=== PATIENT | female | born 1995 | race American Indian/Alaskan Native ===

== ENCOUNTER 2016-10-28 15:57 | Emergency (ER) | payer SELFPAY ==
--- NOTE | 2016-10-28 18:50 | Emergency Department Report ---
Chief Complaint: Abdominal Pain Stated Complaint: LUMPS ON PELVIC AREA/BLISTERS ON VAGINAL AREA Time Seen by Provider: 10/28/16 18:35 - HPI History of Present Illness: pt is a 21-year-old female who presents to ED complaining of irritation in the vaginal area 2-3 days. Patient states blisters looking like lesion on her vaginal area. Patient also had remained light vaginal bleeding 1 day. Patient describes pain with urination and burning with urination well as when she wipes. She denies fevers/chills/nausea/vomiting/abdominal pain/headaches/dizziness or any other problems. - ROS Review of Systems: As noted in HPI - Exam Vital Signs: Vital Signs 10/28/16 16:42 Temperature 98.3 F Pulse Rate 80 Respiratory 16 Rate Blood Pressure 148/98 O2 Sat by Pulse 100 Oximetry Physical Exam: GENERAL: Alert and oriented x3, no apparent distress, Normal Gait, atraumatic. NECK: Supple. Non edematous, No carotid bruits. No lymphadenopathy or thyromegaly. LUNGS: Symetrical with respiration, No wheezing, no rales or crackles, CTAB. HEART: S1, S2 present, regular rate and rhythm without murmur, no rubs, no gallops. ABDOMEN: No organomegaly was noted,Positive bowel sounds, soft, and non- distended. . Nontender to palpation on all Quadrants, NO CVA tenderness. MSE screening note: Focused history and physical exam performed. Due to findings the following was ordered: ED Medical Decision Making - Medical Decision Making Labs ordered. Urinalysis Ultrasound ordered. Patient alert and oriented 3 vital signs normal patient can seen over at [facility]. ED Disposition for MSE Condition: Stable Instructions: Abdominal Pain (ED)
[2016-10-28 19:30] LABS: Bilirubin,Urine NEG (Negative); Blood,Urine NEG (Negative); Ketones,Urine TR mg/dL (Negative); Leukocyte Esterase,Urine MOD (Negative); Mucus,Urine 3+ /HPF; Nitrite,Urine NEG (Negative)
[2016-10-28 20:41] LABS: Basophils % (Auto) 0.5 % (0.0-1.8); Eosinophils % (Auto) 1.5 % (0.0-4.3); Hematocrit 34.2 % (30.3-42.9); Hemoglobin 10.9 gm/dl (10.1-14.3); Mean Corpuscular HGB Conc 32 % (30-34); Mean Corpuscular Hemoglobin 26 pg (28-32); Mean Corpuscular Volume 82 fl (79-97); Platelet Count 285 K/mm3 (140-440); Red Blood Count 4.17 M/mm3 (3.65-5.03); Red Cell Distribution Width 14.8 % (13.2-15.2); White Blood Count 6.3 K/mm3 (4.5-11.0)
--- NOTE | 2016-10-28 22:14 | Ultrasound Report ---
FINAL REPORT PROCEDURE: US TRANSVAGINAL TECHNIQUE: Real-time transvaginal sonography in multiple planes of the pelvis was performed with image documentation. This examination was performed without Doppler. Vascular abnormalities, including ovarian torsion, will not be detectable without Doppler evaluation. CPT 00512 HISTORY: vag bleed COMPARISON: No prior studies are available for comparison. FINDINGS: UTERUS Size: 7.5 cm. Endometrial thickness: mm. Orientation: anteverted. Cervix: Normal. Fibroids/masses: None. RIGHT Ovary: 2.6 x 1.8 cm. Appearance: Normal flow. 1.3 centimeter cystic area right ovary. Minimal peripheral flow LEFT Ovary: 3.8 x 2.9 cm. Appearance: Normal flow. 2.8 x 2.3 centimeter heterogeneous mildly complex ovoid mass of diminished echogenicity with 5 millimeter areas of higher echogenicity.. This mass is of indeterminate etiology. Minimal peripheral marginal vascularity. Ectopic is the diagnosis of exclusion. Correlation with beta HCG analysis advised. Further characterization with cross-sectional imaging may be of use to exclude dermoid type masses. Pelvic fluid: None. Other: None. IMPRESSION: Solid complex mass in the left adnexa of indeterminate etiology. Cystic change right ovary No free fluid Followup is advised
--- NOTE | 2016-10-28 22:16 | Ultrasound Report ---
FINAL REPORT PROCEDURE: US PELVIC COMPLETE TECHNIQUE: Real-time transabdominal sonography in multiple planes of pelvis was performed with image documentation. This examination was performed without Doppler. Vascular abnormalities, including ovarian torsion, will not be detectable without Doppler evaluation. CPT 76706 HISTORY: vag bleed COMPARISON: Transvaginal ultrasound today FINDINGS: UTERUS Size: 7.5 cm. Endometrial thickness: 5 mm. Orientation: anteverted. Cervix: Normal. Fibroids/masses: None. RIGHT Ovary: 2.6 x 1.8 cm. Appearance: Normal flow. 1.3 centimeter cyst right ovary. LEFT Ovary: 3.8 x 2.9 cm. Appearance: Normal flow. 2.8 centimeter complex solid mass left adnexa of indeterminate etiology. This may warrant further workup. Pelvic fluid: None. Other: None. IMPRESSION: Cystic change right ovary Indeterminate complex solid mass left ovary. Followup and further workup advised as warranted
--- NOTE | 2016-10-28 23:24 | Emergency Department Report ---
ED Female HPI - General Chief complaint: Abdominal Pain Stated complaint: LUMPS ON PELVIC AREA/BLISTERS ON VAGINAL AREA Time Seen by Provider: 10/28/16 23:21 Source: patient, family Mode of arrival: Ambulatory Limitations: No Limitations - History of Present Illness Initial comments: Patient here with family. She reports that she has blisters and her vaginal area 2-3 days and they are very painful. She is also complaining the hemorrhoids off and on 6 months. She says she had some rectal bleeding with bowel movement but none recently. She is complaining not in her groin area. And pelvic area for a couple days. She does report she has some urinary burning. Denies any vaginal discharge. She denies any nausea vomiting or diarrhea. Denies any abdominal pain at present. She says she had vaginal bleeding that she is unable. Painful rectal area and pelvic area 10out of 10. She is also having pain to her vaginal area on the outside at 10 out of 10. She denies any fever or chills. Denies any back pain. MD Complaint: dysuria, other (blisters to vaginal area. Rectal pain.) Onset/Timin -: days(s), month(s) (hemorrhoids. 6 months) Location: labia Radiation: non-radiating Severity: severe Severity scale (0 -10): 10 Consistency: constant Improves with: none Worsens with: urination, movement Are you Now?: No Associated Symptoms: vaginal bleeding, dysuria, rash. denies: vaginal discharge , abdominal pain, nausea/vomiting, fever/chills, headaches, loss of appetite, seizure, shortness of breath, syncope, weakness - Related Data Sexually active: Yes Previous Rx's Medication Instructions Recorded Last Taken Type Cephalexin [Keflex] 500 mg PO Q8HR #42 cap 10/12/15 Unknown Rx Phenazopyridine [Pyridium] 100 mg PO TID #6 tab 10/12/15 Unknown Rx Metaxalone [Skelaxin] 800 mg PO TID PRN #15 tablet 08/17/16 Unknown Rx Hydrocortisone [Anucort-HC SUPPOS] 25 mg RC BID #10 supp.rect 10/28/16 Unknown Rx Ibuprofen [Motrin 600 MG tab] 600 mg PO Q8H PRN #15 tablet 10/28/16 Unknown Rx Nitrofurantoin [place]/M-Cryst 100 mg PO Q12HR #14 capsule 10/28/16 Unknown Rx [Macrobid CAP] Valacyclovir HCl [Valtrex] 1,000 mg PO BID #14 tab 10/28/16 Unknown Rx Allergies Allergy/AdvReac Type Severity Reaction Status Date / Time No Known Allergies Allergy Verified 10/28/16 16:51 ED Review of Systems ROS: Stated complaint: LUMPS ON PELVIC AREA/BLISTERS ON VAGINAL AREA Other details as noted in HPI Comment: All other systems reviewed and negative Constitutional: no symptoms reported ENT: denies: ear pain, throat pain, epistaxis, congestion Respiratory: no symptoms reported Cardiovascular: denies: chest pain, palpitations, edema, syncope Genitourinary: dysuria, other ([place] vaginal area. Complaining of hemorrhoids. Rectal pain). denies: urgency, frequency, hematuria, discharge, abnormal menses, dyspareunia Skin: rash Neurological: denies: headache, weakness, numbness, paresthesias, confusion ED Past Medical Hx - Past Medical History Previous Medical History?: Yes Additional medical history: HPV - Surgical History Past Surgical History?: No - Family History Family history: no significant - Social History Smoking Status: Never Smoker Substance Use Type: None - Medications Home Medications: Home Medications Medication Instructions Recorded Confirmed Last Taken Type Cephalexin [Keflex] 500 mg PO Q8HR #42 cap 10/12/15 Unknown Rx Phenazopyridine [Pyridium] 100 mg PO TID #6 tab 10/12/15 Unknown Rx Metaxalone [Skelaxin] 800 mg PO TID PRN #15 tablet 08/17/16 Unknown Rx Hydrocortisone [Anucort-HC SUPPOS] 25 mg RC BID #10 supp.rect 10/28/16 Unknown Rx Ibuprofen [Motrin 600 MG tab] 600 mg PO Q8H PRN #15 tablet 10/28/16 Unknown Rx Nitrofurantoin [place]/M-Cryst 100 mg PO Q12HR #14 capsule 10/28/16 Unknown Rx [Macrobid CAP] Valacyclovir HCl [Valtrex] 1,000 mg PO BID #14 tab 10/28/16 Unknown Rx ED Physical Exam - General Limitations: No Limitations General appearance: alert, in no apparent distress - Head Head exam: Present: atraumatic, normocephalic, normal inspection - Eye Eye exam: Present: normal appearance, PERRL, EOMI Pupils: Present: normal accommodation - ENT ENT exam: Present: normal exam, normal orophraynx, mucous membranes moist, TM's normal bilaterally, normal external ear exam - Neck Neck exam: Present: normal inspection, full ROM. Absent: tenderness, meningismus, lymphadenopathy - Respiratory Respiratory exam: Present: normal lung sounds bilaterally. Absent: respiratory distress - Cardiovascular Cardiovascular Exam: Present: regular rate, normal rhythm, normal heart sounds - GI/Abdominal GI/Abdominal exam: Present: soft, normal bowel sounds. Absent: distended, tenderness, guarding, rebound, rigid - Rectal Rectal exam: Present: hemorrhoids, tenderness. Absent: normal rectal tone, decreased rectal tone, heme (-) stool, black stool, bloody stool, fecal impaction, mass - External exam: Present: erythema, lesions (lesions noted to the vaginal area herpetic in appearance. Area is tender to palpate.), other (positive inguinal lymphadenopathy ). Absent: swelling, lacerations, ecchymosis, bleeding Speculum exam: Present: normal speculum exam. Absent: erythema, vaginal discharge, cervical discharge, vaginal bleeding, foreign body, tissue, laceration Bi-manual exam: Present: normal bi-manual exam. Absent: cervical motion tendernes, adnexal tenderness, adnexal mass - Extremities Exam Extremities exam: Present: normal inspection, full ROM, normal capillary refill , calf tenderness. Absent: tenderness, pedal edema, joint swelling - Back Exam Back exam: Present: normal inspection, full ROM. Absent: tenderness, CVA tenderness (R), CVA tenderness (L), muscle spasm, paraspinal tenderness, vertebral tenderness - Neurological Exam Neurological exam: Present: alert, altered, normal gait, motor sensory deficit. Absent: reflexes normal - Psychiatric Psychiatric exam: Present: normal affect, normal mood - Skin Skin exam: Present: warm, dry, intact, normal color ED Course Vital Signs 10/28/16 16:42 Temperature 98.3 F Pulse Rate 80 Respiratory 16 Rate Blood Pressure 148/98 O2 Sat by Pulse 100 Oximetry - Reevaluation(s) Reevaluation #1: 10/28/16 23:49 stable during ED course ED Medical Decision Making - Lab Data Result diagrams: 10/28/16 20:15 Lab Results 10/28/16 10/28/16 10/28/16 Range/Units 17:40 20:15 20:15 WBC 6.3 (4.5-11.0) K/mm3 RBC 4.17 (3.65-5.03) M/mm3 Hgb 10.9 (10.1-14.3) gm/dl Hct 34.2 (30.3-42.9) % MCV 82 (79-97) fl MCH 26 L (28-32) pg MCHC 32 (30-34) % RDW 14.8 (13.2-15.2) % Plt Count 285 (140-440) K/mm3 Lymph % (Auto) 38.4 H (13.4-35.0) % [place] % (Auto) 11.2 H (0.0-7.3) % Eos % (Auto) 1.5 (0.0-4.3) % Baso % (Auto) 0.5 (0.0-1.8) % Lymph # 2.4 (1.2-5.4) K/mm3 [place] # 0.7 (0.0-0.8) K/mm3 Eos # 0.1 (0.0-0.4) K/mm3 Baso # 0.0 (0.0-0.1) K/mm3 Seg Neutrophils % 48.4 (40.0-70.0) % Seg Neutrophils # 3.0 (1.8-7.7) K/mm3 HCG, Quant (0-4) mIU/mL Urine Color Yellow (Yellow) Urine Turbidity Slightly-cloudy (Clear) Urine pH 6.0 (5.0-7.0) Ur Specific [place] 1.025 (1.003-1.030) Urine Protein 30 mg/dl (Negative) mg/dL Urine Glucose (UA) Neg (Negative) mg/dL Urine Ketones Tr (Negative) mg/dL Urine Blood Neg (Negative) Urine Nitrite Neg (Negative) Urine Bilirubin Neg (Negative) Urine Urobilinogen 2.0 (<2.0) mg/dL Ur Leukocyte Esterase Mod (Negative) Urine WBC (Auto) 135.0 H (0.0-6.0) /HPF Urine RBC (Auto) 39.0 (0.0-6.0) /HPF U Epithel Cells (Auto) 9.0 (0-13.0) /HPF Urine Mucus 3+ /HPF Urine HCG, Qual Negative (Negative) Blood Type O NEGATIVE Antibody Screen Negative 10/28/16 Range/Units 20:26 WBC (4.5-11.0) K/mm3 RBC (3.65-5.03) M/mm3 Hgb (10.1-14.3) gm/dl Hct (30.3-42.9) % MCV (79-97) fl MCH (28-32) pg MCHC (30-34) % RDW (13.2-15.2) % Plt Count (140-440) K/mm3 Lymph % (Auto) (13.4-35.0) % [place] % (Auto) (0.0-7.3) % Eos % (Auto) (0.0-4.3) % Baso % (Auto) (0.0-1.8) % Lymph # (1.2-5.4) K/mm3 [place] # (0.0-0.8) K/mm3 Eos # (0.0-0.4) K/mm3 Baso # (0.0-0.1) K/mm3 Seg Neutrophils % (40.0-70.0) % Seg Neutrophils # (1.8-7.7) K/mm3 HCG, Quant < 2 (0-4) mIU/mL Urine Color (Yellow) Urine Turbidity (Clear) Urine pH (5.0-7.0) Ur Specific [place] (1.003-1.030) Urine Protein (Negative) mg/dL Urine Glucose (UA) (Negative) mg/dL Urine Ketones (Negative) mg/dL Urine Blood (Negative) Urine Nitrite (Negative) Urine Bilirubin (Negative) Urine Urobilinogen (<2.0) mg/dL Ur Leukocyte Esterase (Negative) Urine WBC (Auto) (0.0-6.0) /HPF Urine RBC (Auto) (0.0-6.0) /HPF U Epithel Cells (Auto) (0-13.0) /HPF Urine Mucus /HPF Urine HCG, Qual (Negative) Blood Type Antibody Screen - Radiology Data Radiology results: report reviewed Pelvic ultrasound reveals cystic changes to right ovary. Indeterminate complex solid mass left ovary. Follow-up and further workup advised is warranted. Left ovary with normal flow ,right ovary with normal flow. - Medical Decision Making ED course: I discussed with patient her results from ultrasound and I told her that she will need to follow up with [facility] in 2-3 days for further evaluation and treatment of complex mass her left ovary and cystic mass to the right ovary. I also instructed her that she is not and that her urine shows that she has urinary tract infection and based on my physical examination she has herpes genitalia and rectal hemorrhoid. She was understanding of need to follow-up. I Discussed treatment plan with patient to include follow-up and medication and she voices understanding. Patient discharged home with prescription for Macrobid and valacyclovir, Anucort and ibuprofen. Critical care attestation.: If time is entered above; I have spent that time in minutes in the direct care of this critically ill patient, excluding procedure time. ED Disposition Clinical Impression: Acute cystitis without hematuria, Herpes simplex of female genitalia, Internal hemorrhoid, Mass of left ovary Ovarian cyst Qualifiers: Laterality: right Qualified Code(s): N83.201 - Unspecified ovarian cyst, right side Disposition: DISCHARGED TO HOME OR SELFCARE Is pt being admited?: No Does the pt Need Aspirin: No Condition: Stable Instructions: Hemorrhoids (ED), Urinary Tract Infection in Women (ED), Genital Herpes Simplex (ED), Ovarian Cyst (ED) Additional Instructions: Ultrasound report revealed that you have a 2.8 cm complex solid mass to left ovary and he will need to follow up with [facility] for further evaluation and treatment. you will probably need a biopsy of left ovarian mass. It is very important that we call [facility] in the morning to schedule an appointment take medication as prescribed Please follow up with [facility] see discharge instruction paperwork for phone number and address. He can also follow-up with outside Medical Center. Refer to discharge instruction paperwork for address and phone number. Prescriptions: Hydrocortisone [Anucort-HC SUPPOS] 25 mg RC BID #10 supp.rect Nitrofurantoin [place]/M-Cryst [Macrobid CAP] 100 mg PO Q12HR #14 capsule Ibuprofen [Motrin 600 MG tab] 600 mg PO Q8H PRN #15 tablet PRN Reason: Pain Valacyclovir HCl [Valtrex] 1,000 mg PO BID #14 tab Referrals: [facility] [Outside] - 2-3 Days [facility] [Provider Group] - 10/30/16 [facility] [Primary Care Provider] - 2-3 Days Forms: Accompanied Note, Work/School Release Form(ED)
[2016-10-29 01:30] VITALS: BP 139/89
== END 2016-10-29 01:30 | disposition home or self-care (01) ==
LOC: ED 15:57
DX: N30.00 Acute cystitis without hematuria (principal); A60.09 Herpesviral infection of other urogenital tract; N83.201 Unspecified ovarian cyst, right side; K64.8 Other hemorrhoids
CPT/HCPCS: 36415; 76830; 76856; 81001; 81025; 84702; 85025; 86850; 86900; 86901

== ENCOUNTER 2017-03-09 18:00 | Emergency (ER) | payer SELFPAY ==
[2017-03-09 19:05] LABS: Basophils % (Auto) 0.6 % (0.0-1.8); Eosinophils % (Auto) 0.9 % (0.0-4.3); Hematocrit 32.8 % (30.3-42.9); Hemoglobin 10.6 gm/dl (10.1-14.3); Mean Corpuscular HGB Conc 33 % (30-34); Mean Corpuscular Hemoglobin 26 pg (28-32); Mean Corpuscular Volume 80 fl (79-97); Platelet Count 355 K/mm3 (140-440); Red Blood Count 4.08 M/mm3 (3.65-5.03); Red Cell Distribution Width 14.5 % (13.2-15.2); White Blood Count 9.2 K/mm3 (4.5-11.0)
[2017-03-09 19:20] LABS: Alanine Aminotransferase 9 units/L (7-56); Albumin/Globulin Ratio 0.9 %; Alkaline Phosphatase 71 units/L (35-129); Anion Gap 21 mmol/L; Blood Urea Nitrogen 10 mg/dL (7-17); Calcium 9.7 mg/dL (8.4-10.2); Carbon Dioxide 23 mmol/L (22-30); Chloride 95.8 mmol/L (98-107); Glucose 82 mg/dL (65-100); Lipase 22 units/L (13-60); Potassium 4.1 mmol/L (3.6-5.0); Sodium 136 mmol/L (137-145); Total Protein 8.6 g/dL (6.3-8.2)
--- NOTE | 2017-03-10 00:06 | Emergency Department Report ---
HPI - General Chief Complaint: Vaginal Bleeding Time Seen by Provider: 03/09/17 23:33 - HPI HPI: This is a 22-year-old Afro-[place] female presents to the emergency department , driving himself in to be seen today, with complaint of a three-day history of some type of cyst or abscess to the right side of the vagina. She says that she noticed it 3 days ago but the pain started yesterday. It is getting to the point where it hurts with any movement or walking. She tried some Motrin for her symptoms without any relief. She does not have a primary care doctor or OB/ [facility]. No recent travel or sick contacts at home. She has a past medical history of HPV and a right ovarian cyst. ED Past Medical Hx - Past Medical History Previous Medical History?: Yes Additional medical history: HPV, rigth ovarian cyst - Surgical History Past Surgical History?: No - Social History Smoking Status: Never Smoker Substance Use Type: Non Opiate Pain - Medications Home Medications: Home Medications Medication Instructions Recorded Confirmed Last Taken Type Cephalexin [Keflex] 500 mg PO Q8HR #42 cap 10/12/15 Unknown Rx Phenazopyridine [Pyridium] 100 mg PO TID #6 tab 10/12/15 Unknown Rx Metaxalone [Skelaxin] 800 mg PO TID PRN #15 tablet 08/17/16 Unknown Rx Hydrocortisone [Anucort-HC SUPPOS] 25 mg RC BID #10 supp.rect 10/28/16 Unknown Rx Ibuprofen [Motrin 600 MG tab] 600 mg PO Q8H PRN #15 tablet 10/28/16 Unknown Rx Nitrofurantoin [place]/M-Cryst 100 mg PO Q12HR #14 capsule 10/28/16 Unknown Rx [Macrobid CAP] Valacyclovir HCl [Valtrex] 1,000 mg PO BID #14 tab 10/28/16 Unknown Rx HYDROcodone/APAP 5-325 [[place] 1 each PO Q6HR PRN #10 tablet 03/10/17 Unknown Rx 5/325] Sulfamethoxazole/Trimethoprim 1 each PO BID #14 tablet 03/10/17 Unknown Rx [Bactrim DS TAB] ED Review of Systems ROS: Stated complaint: POSS CYST Other details as noted in HPI Comment: All other systems reviewed and negative Constitutional: denies: chills, fever Eyes: denies: eye pain, eye discharge, vision change ENT: denies: ear pain, throat pain Respiratory: denies: cough, shortness of breath, wheezing Cardiovascular: denies: chest pain, palpitations Gastrointestinal: denies: abdominal pain, nausea, diarrhea Genitourinary: denies: dysuria, discharge Musculoskeletal: denies: back pain, joint swelling, arthralgia Skin: denies: rash, lesions Neurological: denies: headache, weakness, paresthesias Physical Exam - Physical Exam Vital Signs: Vital Signs 03/09/17 03/09/17 18:19 23:59 Temperature 97.8 F Pulse Rate 102 H Respiratory 18 20 Rate Blood Pressure 161/109 Blood Pressure 161/109 [Right] O2 Sat by Pulse 99 99 Oximetry Physical Exam: GENERAL: The patient is well-developed well-nourished. HEENT: Normocephalic. Atraumatic. Extraocular motions are intact. Patient has moist mucous membranes. NECK: Supple. Trachea is midline. CHEST/LUNGS: Clear to auscultation. There is no respiratory distress noted. HEART/CARDIOVASCULAR: Regular. There is no tachycardia. There is no gallop rub or murmur. ABDOMEN: Abdomen is soft, nontender. Patient has normal bowel sounds. There is no abdominal distention. SKIN: There is a tender and fluctuant abscess just inside the right side of the vagina. There does not appear to be any surrounding erythema. There are no other vaginal or labial lesions seen. NEURO: The patient is awake, alert, and oriented. The patient is cooperative. The patient has no focal neurologic deficits. The patient has normal speech. MUSCULOSKELETAL: There is no tenderness or deformity. There is no limitation range of motion. There is no evidence of acute injury. ED Course Vital Signs 03/09/17 03/09/17 18:19 23:59 Temperature 97.8 F Pulse Rate 102 H Respiratory 18 20 Rate Blood Pressure 161/109 Blood Pressure 161/109 [Right] O2 Sat by Pulse 99 99 Oximetry - I & D Right Vagina Type of Procedure: Simple Site: right-sided Bartholin's Gland abscess Blade Size: 11 I & D Procedure: betadine prep Progress: The right side of the labia was cleaned with Betadine solution. The Bartholin' s gland cyst/abscess was locally anesthetized with 2 mL of 2% lidocaine. After the patient had some level of numbing, the 11 blade scalpel was used to make a 1 cm incision. There was about 5 mL of purulent malodorous discharge removed. A Word catheter was placed inside and blown up. No complications were seen from the procedure. There was a total blood loss of about 2 mL. ED Medical Decision Making - Lab Data Result diagrams: 03/09/17 18:46 03/09/17 18:46 - Medical Decision Making 22-year-old female presents emergency Department with a tender growth to the inside of the right vagina. It appears consistent with a Bartholin's gland cyst versus abscess. Patient had blood work that did not show any leukocytosis , electrolytes abnormalities, renal insufficiency or glucose abnormalities in the patient is not . She denies any vaginal bleeding, vaginal discharge but does have this swollen area within the vagina. The patient received local anesthesia via lidocaine. She then had a incision and drainage which expressed about 5 mL of purulent discharge. This appears most consistent with a Bartholin's gland abscess. A Word catheter was placed inside of the abscess and blown up to be secured. The patient was given oral pain medication and her first dose of antibiotics. We discussed wound care and she understands that the catheter needs to come out in about 2 days. She was given multiple referrals for [facility] but also understands that she can go to an urgent care or return to the emergency department to have a wound check and have the catheter removed. Vital signs stable including being afebrile. There is some mild hypertension but I think it is secondary to pain. - Differential Diagnosis abscess, cyst, cellulitis Critical Care Time: No Critical care attestation.: If time is entered above; I have spent that time in minutes in the direct care of this critically ill patient, excluding procedure time. ED Disposition Clinical Impression: Bartholin's gland abscess Hypertension Qualifiers: Hypertension type: essential hypertension Qualified Code(s): I10 - Essential ( primary) hypertension Disposition: DISCHARGED TO HOME OR SELFCARE Is pt being admited?: No Condition: Stable Instructions: Abscess (ED), Bartholin Cyst (ED), Incision and Drainage (ED), Hypertension (ED) Additional Instructions: Please clean the area with soap and water and then make sure he tries to remain dry. Follow-up with [facility] as soon as possible. The word catheter should come out in about 2 days. This can be done at the [facility] office or if you need to, he can return to the emergency department. Take the antibiotics as prescribed. You've been prescribed a medication that is sedating. Therefore this medication cannot be mixed with alcohol, or taken prior to driving, working, or being responsible for children. Prescriptions: HYDROcodone/APAP 5-325 [[place] 5/325] 1 each PO Q6HR PRN #10 tablet PRN Reason: Pain Sulfamethoxazole/Trimethoprim [Bactrim DS TAB] 1 each PO BID #14 tablet Referrals: PRIMARY CARE [Primary Care Provider] - 3-5 Days [facility] [Provider Group] - 3-5 Days [facility] [Provider Group] - 3-5 Days [facility] [Provider Group] - 3-5 Days Time of Disposition: 02:19
[2017-03-10 00:08] VITALS: BP 149/98
[2017-03-10] MEDS ORDERED: XYLOCAINE 2% INFILTRATI ONE (00:38)
[2017-03-10] MEDS ORDERED: NORCO 5/325 PO ONE (00:44)
[2017-03-10] MEDS ORDERED: BACTRIM DS PO ONE (01:53)
== END 2017-03-10 02:57 | disposition home or self-care (01) ==
LOC: ED 18:00
DX: N75.1 Abscess of Bartholin's gland (principal); I10 Essential (primary) hypertension
CPT/HCPCS: 36415; 80053; 83690; 84702; 85025; 99283

== ENCOUNTER 2017-03-12 20:55 | Emergency (ER) | payer SELFPAY ==
[2017-03-12 21:09] VITALS: BP 113/84
--- NOTE | 2017-03-12 21:46 | Emergency Department Report ---
ED Recheck HPI - General Chief Complaint: Medical Clearance Stated Complaint: CATHETER REMOVAL Time Seen by Provider: 03/12/17 21:11 Source: patient Mode of arrival: Ambulatory Limitations: No Limitations - History of Present Illness Initial Comments: This is a 22-year-old female well-nourished with nontoxic or ill in appearance that presents with a reevaluation of a heredia catheter has been placed 3 days for a bathrolin abscess by Dr. Fernandes. Patient stated Dr. Fernandes instrcuted patient to return in 2 days for Heredia cath removal. Patient stated area is still draining pus like appearance. Patient denies fever, chills, headache, CP, SOB, numbness, tingling, abd pain, numbness or tingling. Patient stated she feels pain to the I&D area. Patient stated has been taking Bactrim [place]. Patient denies any drug allergies. MD Complaint: wound re-check -: Gradual, days(s) (3) Initial Visit For: abscess Returns Today for: wound recheck Symptoms Since Prior Visit: improved Context: other (came in for removal of heredia cath) Associated Symptoms: none. denies: fever, chills, chest pain, shortness of breath, rash, malaise, nasuea, abdominal pain Treatments Prior to Arrival: other (Bactrim, Roxbury) - Related Data Previous Rx's Medication Instructions Recorded Last Taken Type Cephalexin [Keflex] 500 mg PO Q8HR #42 cap 10/12/15 Unknown Rx Phenazopyridine [Pyridium] 100 mg PO TID #6 tab 10/12/15 Unknown Rx Metaxalone [Skelaxin] 800 mg PO TID PRN #15 tablet 08/17/16 Unknown Rx Hydrocortisone [Anucort-HC SUPPOS] 25 mg RC BID #10 supp.rect 10/28/16 Unknown Rx Ibuprofen [Motrin 600 MG tab] 600 mg PO Q8H PRN #15 tablet 10/28/16 Unknown Rx Nitrofurantoin Tyrrell/M-Cryst 100 mg PO Q12HR #14 capsule 10/28/16 Unknown Rx [Macrobid CAP] Valacyclovir HCl [Valtrex] 1,000 mg PO BID #14 tab 10/28/16 Unknown Rx HYDROcodone/APAP 5-325 [[place] 1 each PO Q6HR PRN #10 tablet 03/10/17 Unknown Rx 5/325] Sulfamethoxazole/Trimethoprim 1 each PO BID #14 tablet 03/10/17 Unknown Rx [Bactrim DS TAB] Allergies Allergy/AdvReac Type Severity Reaction Status Date / Time No Known Allergies Allergy Verified 10/28/16 16:51 ED Review of Systems ROS: Stated complaint: CATHETER REMOVAL Other details as noted in HPI Constitutional: denies: chills, fever Eyes: denies: eye pain, eye discharge, vision change ENT: denies: ear pain, throat pain Respiratory: denies: cough, shortness of breath, wheezing Cardiovascular: denies: chest pain, palpitations Endocrine: no symptoms reported Gastrointestinal: denies: abdominal pain, nausea, diarrhea Genitourinary: denies: urgency, dysuria, discharge Musculoskeletal: denies: back pain, joint swelling, arthralgia Skin: denies: rash, lesions Neurological: denies: headache, weakness, paresthesias Psychiatric: denies: anxiety, depression Hematological/Lymphatic: denies: easy bleeding, easy bruising ED Past Medical Hx - Past Medical History Additional medical history: HPV, rigth ovarian cyst - Social History Smoking Status: Never Smoker Substance Use Type: None - Medications Home Medications: Home Medications Medication Instructions Recorded Confirmed Last Taken Type Cephalexin [Keflex] 500 mg PO Q8HR #42 cap 10/12/15 Unknown Rx Phenazopyridine [Pyridium] 100 mg PO TID #6 tab 10/12/15 Unknown Rx Metaxalone [Skelaxin] 800 mg PO TID PRN #15 tablet 08/17/16 Unknown Rx Hydrocortisone [Anucort-HC SUPPOS] 25 mg RC BID #10 supp.rect 10/28/16 Unknown Rx Ibuprofen [Motrin 600 MG tab] 600 mg PO Q8H PRN #15 tablet 10/28/16 Unknown Rx Nitrofurantoin Tyrrell/M-Cryst 100 mg PO Q12HR #14 capsule 10/28/16 Unknown Rx [Macrobid CAP] Valacyclovir HCl [Valtrex] 1,000 mg PO BID #14 tab 10/28/16 Unknown Rx HYDROcodone/APAP 5-325 [[place] 1 each PO Q6HR PRN #10 tablet 03/10/17 Unknown Rx 5/325] Sulfamethoxazole/Trimethoprim 1 each PO BID #14 tablet 03/10/17 Unknown Rx [Bactrim DS TAB] ED Physical Exam - General Limitations: No Limitations General appearance: alert, in no apparent distress - Head Head exam: Present: atraumatic, normocephalic, normal inspection - Eye Eye exam: Present: normal appearance, PERRL, EOMI. Absent: scleral icterus, conjunctival injection, nystagmus, periorbital swelling, periorbital tenderness Pupils: Present: normal accommodation - ENT ENT exam: Present: normal exam, normal orophraynx, mucous membranes moist, TM's normal bilaterally, normal external ear exam - Neck Neck exam: Present: normal inspection, full ROM. Absent: tenderness, meningismus, lymphadenopathy, thyromegaly - Respiratory Respiratory exam: Present: normal lung sounds bilaterally. Absent: respiratory distress, wheezes, rales, rhonchi, stridor - Cardiovascular Cardiovascular Exam: Present: regular rate, normal rhythm. Absent: systolic murmur, diastolic murmur, rubs, gallop - GI/Abdominal GI/Abdominal exam: Present: soft, normal bowel sounds. Absent: distended, tenderness, guarding, rebound, rigid, diminished bowel sounds - External exam: Present: normal external exam, other (heredia cath normal position with no signs of pus or drainage. No odor. no swelling. No erythema. Nontender. ). Absent: erythema, swelling, lesions, lacerations, ecchymosis, bleeding - Extremities Exam Extremities exam: Present: normal inspection, full ROM, normal capillary refill , calf tenderness. Absent: tenderness, pedal edema, joint swelling - Back Exam Back exam: Present: normal inspection, full ROM. Absent: tenderness, CVA tenderness (R), CVA tenderness (L), muscle spasm, paraspinal tenderness, vertebral tenderness, rash noted - Neurological Exam Neurological exam: Present: alert, oriented X3, CN II-XII intact, normal gait - Psychiatric Psychiatric exam: Present: normal affect, normal mood - Skin Skin exam: Present: warm, dry, intact, normal color. Absent: rash ED Course Vital Signs 03/12/17 21:03 Temperature 99.1 F Respiratory 20 Rate Blood Pressure 113/84 O2 Sat by Pulse 100 Oximetry ED Recheck MDM - Medical Decision Making Ed course: This is a 22-year-old female that presents with Heredia cath removal 1- A physical exam has been performed with lease out man present (Allen Larkin) with normal findings. 2- I instructed patient that the heredia cath has to stay in place for at least 4 weeks and follow-up with a [employer]. 3- I provided patient with [employer]PA[employer] TE[employer]ER and different clinics for a f/u 4- I instructed patient to continue taking Bactrim and Roxbury for pain 5- at the time of discharge the patient does not seem toxic or ill in appearance. No signs of distress noted. Patient agrees to discharge treatment plan. No further questions noted by the patient. Critical care attestation.: If time is entered above; I have spent that time in minutes in the direct care of this critically ill patient, excluding procedure time. ED Disposition Clinical Impression: Encounter for wound re-check Disposition: DC-01 TO HOME OR SELFCARE Is pt being admited?: No Does the pt Need Aspirin: No Condition: Stable Instructions: Acute Wound Care (ED) Additional Instructions: Heredia Cath has to be in placed for at least 4 weeks and must be monitored by a provider. Please follow-up with a provider as soon as possible. If symptoms of fever, chills, headache, stiff neck, shortness of breath, chest pain returned back to emergency department as soon as possible. Continue taking Bactrim and Roxbury as prescribed. Referrals: PRIMARY CAREMD [Primary Care Provider] - 3-5 Days [facility] [Provider Group] - 24 Hours [facility] [Outside] - 24 Hours [facility] [Outside] - 24 Hours SARAH SMITH JR, MD [Staff Physician] - 24 Hours Forms: Work/School Release Form(ED)
== END 2017-03-12 22:17 | disposition home or self-care (01) ==
LOC: ED 20:55
DX: Z48.817 Encounter for surgical aftercare following surgery on the skin and subcutaneous tissue (principal); N75.1 Abscess of Bartholin's gland; N83.201 Unspecified ovarian cyst, right side

== ENCOUNTER 2019-04-15 20:27 | Emergency (ER) | payer SELFPAY ==
--- NOTE | 2019-04-15 21:36 | Event Note ---
ED Screening Note ED Screening Note: Left ankle pain that began this morning around 5 AM states that she tripped and inverted her ankle ambulatory but with discomfort never injured before LNMP: april 07 PMHx ovarian cyst no allergies to meds This initial assessment/diagnostic orders/clinical plan/treatment(s) is/are subject to change based on patients health status, clinical progression and re- assessment by fellow clinical providers in the ED. Further treatment and workup at subsequent clinical providers discretion. Patient/guardian urged not to elope from the ED as their condition may be serious if not clinically assessed and managed. Initial orders include: xr of the left ankle
[2019-04-15 21:38] VITALS: BP 163/73
--- NOTE | 2019-04-15 22:17 | XRay Report ---
Left ankle 3 views INDICATION: Left ankle pain following injury IMPRESSION: No fracture or subluxation of the left ankle is identified. Signer Name: Sabas Khan MD Signed: 04/15/2019 10:12 PM Workstation Name: [id number]
--- NOTE | 2019-04-15 23:18 | Emergency Department Report ---
ED Lower Extremity HPI - General Chief Complaint: Extremity Injury, Lower Stated Complaint: ANKLE INJURY Time Seen by Provider: 04/15/19 21:34 Source: patient Mode of arrival: Ambulatory Limitations: No Limitations - History of Present Illness Initial Comments: She was leaving out of the back door of her friend's apartment and was she stepped down onto the step left ankle rolled and the inversion fashion, causing pain to the lateral aspect which is worse with ambulation. She is able to and ambulate with some discomfort. She noticed some swelling and a dull throbbing pain there which is continued to MD Complaint: ankle injury -: Gradual Injury: Ankle: Left Type of Injury: inversion Place: home Severity: mild Worsens With: weight bearing, movement, palpation Associated Symptoms: able to partially bear weight, ambulatory. denies: swelling, numbness, unable to bear weight - Related Data Previous Rx's Medication Instructions Recorded Last Taken Type Phenazopyridine [Pyridium] 100 mg PO TID #6 tab 10/12/15 Unknown Rx cephALEXin [Keflex] 500 mg PO Q8HR #42 cap 10/12/15 Unknown Rx Metaxalone [Skelaxin] 800 mg PO TID PRN #15 tablet 08/17/16 Unknown Rx Hydrocortisone [Anucort-HC SUPPOS] 25 mg RC BID #10 supp.rect 10/28/16 Unknown Rx Ibuprofen [Motrin 600 MG tab] 600 mg PO Q8H PRN #15 tablet 10/28/16 Unknown Rx Nitrofurantoin [place]kins/M-Cryst 100 mg PO Q12HR #14 capsule 10/28/16 Unknown Rx [Macrobid CAP] Valacyclovir HCl [Valtrex] 1,000 mg PO BID #14 tab 10/28/16 Unknown Rx HYDROcodone/APAP 5-325 [Freedom 1 each PO Q6HR PRN #10 tablet 03/10/17 Unknown Rx 5/325] Sulfamethoxazole/Trimethoprim 1 each PO BID #14 tablet 03/10/17 Unknown Rx [Bactrim DS TAB] Ketorolac [Toradol] 10 mg PO Q6H PRN #15 tablet 08/28/18 Unknown Rx traMADol [Ultram] 50 mg PO Q6HR PRN #20 tablet 08/28/18 Unknown Rx Ketorolac [Toradol] 10 mg PO Q6H PRN #15 tablet 04/15/19 Unknown Rx Allergies Allergy/AdvReac Type Severity Reaction Status Date / Time No Known Allergies Allergy Verified 10/28/16 16:51 ED Review of Systems ROS: Stated complaint: ANKLE INJURY Other details as noted in HPI Comment: All other systems reviewed and negative ED Past Medical Hx - Past Medical History Previous Medical History?: No Hx Hypertension: No Hx CVA: No Hx Heart Attack/AMI: No Hx Congestive Heart Failure: No Hx Diabetes: No Hx Deep Vein Thrombosis: No Hx Pulmonary Embolism: No Hx GERD: No Hx Liver Disease: No Hx Renal Disease: No Hx of Cancer: No Hx Sickle Cell Disease: No Hx Arthritis: No Hx Headaches / Migraines: No Hx Seizures: No Hx Kidney Stones: No Hx Psychiatric Treatment: No Hx Asthma: No Hx COPD: No Hx Tuberculosis: No Hx Dementia: No Hx HIV: No Additional medical history: HPV, rigth ovarian cyst - Surgical History Past Surgical History?: No Hx Coronary Stent: No Hx Open Heart Surgery: No Hx Pacemaker: No Hx Internal Defibrillator: No Hx Cholecystectomy: No Hx Appendectomy: No Hx Breast Surgery: No - Social History Smoking Status: Never Smoker Substance Use Type: None - Medications Home Medications: Home Medications Medication Instructions Recorded Confirmed Last Taken Type Phenazopyridine [Pyridium] 100 mg PO TID #6 tab 10/12/15 Unknown Rx cephALEXin [Keflex] 500 mg PO Q8HR #42 cap 10/12/15 Unknown Rx Metaxalone [Skelaxin] 800 mg PO TID PRN #15 tablet 08/17/16 Unknown Rx Hydrocortisone [Anucort-HC SUPPOS] 25 mg RC BID #10 supp.rect 10/28/16 Unknown Rx Ibuprofen [Motrin 600 MG tab] 600 mg PO Q8H PRN #15 tablet 10/28/16 Unknown Rx Nitrofurantoin [place]kins/M-Cryst 100 mg PO Q12HR #14 capsule 10/28/16 Unknown Rx [Macrobid CAP] Valacyclovir HCl [Valtrex] 1,000 mg PO BID #14 tab 10/28/16 Unknown Rx HYDROcodone/APAP 5-325 [Freedom 1 each PO Q6HR PRN #10 tablet 03/10/17 Unknown Rx 5/325] Sulfamethoxazole/Trimethoprim 1 each PO BID #14 tablet 03/10/17 Unknown Rx [Bactrim DS TAB] Ketorolac [Toradol] 10 mg PO Q6H PRN #15 tablet 08/28/18 Unknown Rx traMADol [Ultram] 50 mg PO Q6HR PRN #20 tablet 08/28/18 Unknown Rx Ketorolac [Toradol] 10 mg PO Q6H PRN #15 tablet 04/15/19 Unknown Rx ED Physical Exam - General Limitations: No Limitations General appearance: alert, in no apparent distress - Head Head exam: Present: atraumatic, normocephalic - Eye Eye exam: Present: normal appearance, PERRL, EOMI Pupils: Present: normal accommodation - ENT ENT exam: Present: normal exam, mucous membranes moist - Neck Neck exam: Present: normal inspection - Respiratory Respiratory exam: Present: normal lung sounds bilaterally. Absent: respiratory distress - Cardiovascular Cardiovascular Exam: Present: regular rate, normal rhythm. Absent: systolic murmur, diastolic murmur, rubs, gallop - GI/Abdominal GI/Abdominal exam: Present: soft, normal bowel sounds - Extremities Exam Extremities exam: Present: normal inspection, full ROM, tenderness, normal capillary refill, joint swelling. Absent: pedal edema - Back Exam Back exam: Present: normal inspection, full ROM. Absent: CVA tenderness (R), CVA tenderness (L), muscle spasm, vertebral tenderness - Neurological Exam Neurological exam: Present: alert, oriented X3, CN II-XII intact, normal gait. Absent: motor sensory deficit, reflexes normal - Psychiatric Psychiatric exam: Present: normal affect, normal mood. Absent: flat affect, manic - Skin Skin exam: Present: warm, dry, intact, normal color. Absent: rash, cyanosis, diaphoretic, erythema, petechiae, pallor, abrasion ED Course Vital Signs 04/15/19 21:34 Temperature 99.7 F H Pulse Rate 94 H Respiratory 18 Rate Blood Pressure 163/73 Blood Pressure 163/73 [Right] O2 Sat by Pulse 100 Oximetry Critical care attestation.: If time is entered above; I have spent that time in minutes in the direct care of this critically ill patient, excluding procedure time. ED Disposition Clinical Impression: Left ankle sprain Disposition: DC-01 TO HOME OR SELFCARE Is pt being admited?: No Does the pt Need Aspirin: No Condition: Stable Instructions: Ankle Sprain (ED), Ankle Stirrup Splint (ED) Prescriptions: Ketorolac [Toradol] 10 mg PO Q6H PRN #15 tablet PRN Reason: Pain Referrals: CARLEEN BRICE MD [Staff Physician] - 3-5 Days
== END 2019-04-15 23:52 | disposition home or self-care (01) ==
LOC: ED 20:27
DX: S93.402A Sprain of unspecified ligament of left ankle, initial encounter (principal); W22.8XXA Striking against or struck by other objects, initial encounter; Y93.89 Activity, other specified; Y92.098 Other place in other non-institutional residence as the place of occurrence of the external cause; Y99.8 Other external cause status